=== PATIENT | male | born 1985 | race Caucasian/White ===

== ENCOUNTER 2016-12-22 21:29 | Emergency (ER) | payer OTHER ==
[~2016-12-22] VITALS: Ht 175.3 cm; Wt 81.3 kg
[2016-12-22 21:35] VITALS: TEMP 36.6; Ht 175.3 cm; Wt 81.3 kg
[2016-12-22] MEDS ORDERED: MoRPHine SULFATE 10 MG/ML CARP/VIAL IV STA (21:53)
[2016-12-22] MEDS ORDERED: CEFAZOLIN SOD 1000MG/55 ML D5W IV STA (21:53)
[2016-12-22] MEDS ORDERED: BUPIVACAINE 0.5 % 5 MG/1 ML MPF 30ML VIAL INFIL ONE (22:00)
[2016-12-22] MEDS ORDERED: DIPHTHERIA/TETANUS/PERTUSSIS 0.5 ML SYR/VIAL IM. ONE (22:00)
[2016-12-22] MEDS ORDERED: XYLOCAINE 1%/SOD BICARB 20 ML VIAL INFIL ONE (22:00)
[2016-12-22] MEDS ORDERED: LORAZEPAM 2 MG/ML 1 ML VIAL ONE (22:35)
[2016-12-22] MEDS ORDERED: LORAZEPAM 2 MG/ML 1 ML VIAL IV STA (22:46)
[2016-12-22] MEDS ORDERED: OXYCODONE IR HOME PACK PO ONE (23:00)
[2016-12-22] MEDS ORDERED: CEPHALEXIN 500MG HOME PACK 1 EA BTL PO ONE (23:00)
[2016-12-22] MEDS ORDERED: [UNRECOGNIZED DRUG - OTHER] NAE (23:01)
[2016-12-22] MEDS ORDERED: OXYC1TAB3 PO (23:10)
--- NOTE | 2016-12-22 23:11 | EMERGENCY ROOM VISIT NOTE ---
History First contact with patient: 21:42 Chief Complaint: AVULSION Stated Complaint: CUT TIP OF FINGERS OFF W/SAWBLADE Nursing Triage Summary: cut tips of 3rd adn 4th finger on table saw History of Present Illness The patient is a 31 year old male who presents to the Emergency Room with complaints of an injury to his left third and fourth fingers. The patient states that he was using a table saw when the wood kicked back, causing his left third and fourth fingers to become caught in the saw. The patient reports 8/10 pain in the fingers. He does not have feeling in the tip of the left third finger. The patient states his tetanus shot is not up to date. He denies any other injuries. He denies any active bleeding. Review of Systems A complete 6 point review of systems was reviewed with the patient with pertinent positives and negatives as per history of present illness. All else were negative. Social History Smoking Status: Never Smoker Current/Historical Medications Scheduled PRN Oxycodone Ir (Roxicodone Ir), 1-2 TAB PO Q4H PRN for Pain [Q-Nasal], Unknown Dose GLO DIRECTED PRN for ALLERGIC REACTION Allergies Coded Allergies: POLLEN (Verified Allergy, Intermediate, SNEEZING, RUNNY NOSE, ITCHY EYES, 12/22/16) [place] (Verified Allergy, Intermediate, SNEEZING, RUNNY NOSE, ITCHY EYES., 12/22/16) Uncoded Allergies: WEEDS (Allergy, Intermediate, SNEEZING, RUNNY NOSE, ITCHY EYES, 12/22/16) Physical Exam Vital Signs Date Time Temp Pulse Resp B/P Pulse Ox O2 Delivery O2 Flow Rate FiO2 12/22/16 23:18 85 20 118/63 97 12/22/16 21:35 36.6 96 18 124/71 98 Room Air Physical Exam VITALS: Vitals are noted on the nurse's note and reviewed by myself. Vital signs stable. GENERAL: This is a 31-year-old male, in no acute distress, nondiaphoretic, well- developed well-nourished. HEART: Regular rate and rhythm without murmurs gallops or rubs. LUNGS: Clear to auscultation bilaterally without wheezes, rales or rhonchi. No retractions or accessory muscle use. MUSCULOSKELETAL: There is a 2.5 cm laceration to the palmar aspect of the left third digit, over the area of the DIP. There is a partial amputation of the left fourth digit distal to the DIP. There is an avascular flap attached by a small piece of skin. The wounds do appear to be clean and there are no foreign bodies seen. There is no active bleeding. NEURO: Patient was alert and oriented to person place and time. Medical Decision & Procedures Medications Administered Medications (Trade) Dose Ordered Sig/Giovanny Route Start Time Stop Time Status Last Admin Dose Admin Morphine Sulfate (MoRPHine SULFATE INJ) 8 mg NOW STAT IV 12/22/16 21:53 12/22/16 21:56 DC 12/22/16 22:13 8 MG Cefazolin Sodium (Ancef 1000mg/55 ml D5W) 1,000 mg NOW STAT IV 12/22/16 21:53 12/22/16 21:56 DC 12/22/16 22:13 1,000 MG Diphtheria/ Pertussis/Tetanus Vacc (Adacel Inj) 0.5 ml ONCE ONCE IM. 12/22/16 22:00 12/22/16 22:01 DC 12/22/16 22:00 0.5 ML Lorazepam (Ativan Inj) 1 mg NOW STAT IV 12/22/16 22:46 12/22/16 22:47 DC 12/22/16 22:35 1 MG Cephalexin Monohydrate (Keflex 500MG Home Pack) 1 homepack NOW ONCE PO 12/22/16 23:00 12/22/16 23:01 DC 12/22/16 23:15 1 HOMEPACK Oxycodone HCl (Roxicodone Immediate Rel 5MG Home Pack) 1 homepack UD ONCE PO 12/22/16 23:00 12/22/16 23:01 DC 12/22/16 23:15 1 HOMEPACK Procedure Verbal consent was obtained to perform the procedure. Using sterile technique the wound was cleaned with Betadine. The area was sterilely draped. 10 ml of a 2-1 solution of 1% buffered lidocaine and bupivacaine was used to perform digital blocks on the left third and fourth digits. Once the patient was anesthetized, the lacerations were copiously irrigated under pressure with sterile saline. The lacerations were explored and described as above. There was an avascular flap of the left fourth digit which was removed. 2 simple interrupted 4-0 nylon sutures were used to loosely close the laceration of the left third digit. The patient was placed in a wet-to-dry dressing with metal finger splint. The patient tolerated the procedure well. Medical Decision The patient was evaluated as above. He presents with extensive injuries to the left third and fourth digits. The patient does know Dr. Oliveros, a provider with [facility] personally and Dr. Oliveros did accompany the patient to the emergency department. He contacted Dr. Greshma, the provider on-call for [facility], who recommended loose closure and surgical intervention tomorrow. The patient was given 1 g Ancef and tetanus status was updated. He was given 8 mg morphine for pain and later given 1 mg Ativan for anxiety. Procedure was performed as noted above. Dr. Gresham did not feel that x-ray was necessary, as the patient will be having a surgical procedure first thing tomorrow morning. The patient's pain was well controlled while in the emergency department. He was given a home pack of Keflex and oxycodone for pain. He will follow-up as scheduled tomorrow for surgical intervention. He will return here for any new/concerning symptoms. The patient verbalized understanding of my assessment and treatment plan and was discharged home in good condition. [place] [facility] Monitoring Program Search Results: patient reviewed within database, no issues identified Impression Primary Impression: Amputation of finger tip Additional Impression: Laceration of finger of left hand with complication Departure Information Dispostion Home / Self-Care Condition GOOD Prescriptions Oxycodone Ir (Roxicodone Ir) 5 Mg Tab 1-2 TAB PO Q4H Y for Pain, #15 TAB For Initial Treatment Prov: Annmarie Gaitan, JACK 12/22/16 Referrals No Doctor, Assigned (PCP) Deo Stuart MD Patient Instructions My [facility] Additional Instructions Keflex 4 times a day. You have been prescribed OxyIR to be used for pain control. Take 1-2 tablets every 4-6 hours as needed for pain. This is a narcotic medication. You cannot drive or consume alcohol while on this medicine. This medicine should only be used for pain that cannot be controlled with [id number] pain medicines. Keep the dressing on until follow-up with orthopedics. Problem Qualifiers Primary Impression: Amputation of finger tip Encounter type: initial encounter Qualified Codes: S68.129A - Partial traumatic metacarpophalangeal amputation of unspecified finger, initial encounter Additional Impression: Laceration of finger of left hand with complication Encounter type: initial encounter Qualified Codes: S61.412A - Laceration without foreign body of left hand, initial encounter
[2016-12-22 23:18] VITALS: BP 118/63; PULSE 85; O2SAT 97
== END 2016-12-22 23:20 | disposition home or self-care (01) ==
LOC: C.EDB 21:30 → C.EDD 23:20
DX: S68.125A Partial traumatic metacarpophalangeal amputation of left ring finger, initial encounter (principal); S61.213A Laceration without foreign body of left middle finger without damage to nail, initial encounter; W27.0XXA Contact with workbench tool, initial encounter; Z91.09 Other allergy status, other than to drugs and biological substances